=== PATIENT | female | born 1950 | race Caucasian/White ===

== ENCOUNTER → 2018-07-17 | Day surgery (SDC) | payer OTHER ==
[2018-07-16 13:32] LABS: BASOPHILS % 0.5 % (0.0-1.0); EOSINOPHILS # (AUTO) 0.1 (0.0-0.4); EOSINOPHILS % 1.1 % (0.0-6.0); HEMATOCRIT 37.8 % (34.2-44.1); LYMPHOCYTES # (AUTO) 1.5 (1.0-3.2); LYMPHOCYTES % 20.3 % (18.0-39.1); MEAN CORPUSCULAR HEMOGLOBIN 30.4 pg (28-32); MEAN CORPUSCULAR HGB CONC 34.4 g/dL (31-35); MEAN CORPUSCULAR VOLUME 88.3 fL (81-99); MONOCYTES # (AUTO) 0.5 (0.2-0.8); MONOCYTES % 6.7 % (4.4-11.3); NEUTROPHILS # (AUTO) 5.2 (2.1-6.9); NEUTROPHILS % 71.1 % (38.7-80.0); PLATELET COUNT 218 x10e3/uL (140-360); RED BLOOD COUNT 4.28 x10e6/uL (3.6-5.1); RED CELL DISTRIBUTION WIDTH 12.7 % (11.7-14.4)
--- NOTE | 2018-07-16 14:47 | Diagnostic Imaging Report ---
EXAMINATION: PA and lateral views of the chest. COMPARISON: None CLINICAL HISTORY: Preoperative study for foot surgery DISCUSSION: Lines/tubes: None. Lungs: The lungs are well inflated and clear. There is no evidence of pneumonia or pulmonary edema. Pleura: There is no pleural effusion or pneumothorax. Heart and mediastinum: The cardiomediastinal silhouette is normal. Bones and soft tissues: No acute bony abnormalities. 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 IMPRESSION: No acute cardiopulmonary abnormalities. Signed by: Dr. Tristian Naqvi M.D. on 07/16/2018 2:44 PM
[~2018-07-17] MED LIST: ACETAMINOPHEN 1000 MG/100 ML IV ONE; BUPIVACAINE 0.25% 30ML SDV INJ ONE; CEFAZOLIN SOD 1 GM/NS 50ML 50 ML IV ONE; COQ-10100 MG PO; DEPO-MEDRO80 MG/1 ML INJ; DEXAMETHASONE SOD PHOS INJ 4 MG/ML VIAL ONE; EPHEDRINE SULFATE INJ 50 MG/10 ML SYR ONE; FENTANYL CITRATE/PF 100MCG/2 ML INJ ONE; FLAX SEED OIL1000 MG PO; FOLIC ACID0.8 MG PO; LIDOCAINE HCL 2% LOCAL INJ 5 ML SDV VIAL INJ ONE; MELATONIN TR 51 EACH PO; MIDAZOLAM HCL 2 MG/2 ML VIAL ONE; ONDANSETRON HCL INJ 2MG/ML 2ML 2 MG/ML VIAL ONE; PHENYLEPHRINE HCL 1% 10 MG/ML VIAL ONE; PROPOFOL IV EMULSION 10 MG/ML 20 ML VIAL ONE; SEVOFLURANE INHAL SOLN 250 ML PEN BTL ONE; TORADOL INJ; TUMERIC PO; TYLENOL EXTRA PO; VITAMIN B-1001 EACH PO; VITAMIN B-121000 MC2 PO; VITAMIN B-6100 MG PO; VITAMIN C1000 M2 PO; VITAMIN D1000 UNI1 PO
--- OUTSIDE RECORDS SUMMARY | 2018-07-17 05:16 | XMS REPORT ---
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 Allergies, Adverse Reactions, Alerts This patient has no known allergies or adverse reactions. Medications This patient has no known medications. Results Test Description Test Time Test Comments Text Results Atomic Results Result Comments CHEST 2 VIEWS 2018-07-16 14:43:00 [place] [address] Patient Name: DIMITRIOS HEATH MR #: [id number] : 1950 Age/Sex: 67/F Req #: [id number] Adm Physician: Ordered by: MEENAKSHI NAJERA DPM Report #: [id number] Location: OR Room/Bed: Procedure: [id number] DX/CHEST 2 VIEWS Exam Date: 07/16/18 Exam Time: 1320 REPORT STATUS: Signed EXAMINATION: PA and lateral views of the chest. COMPARISON: None CLINICAL HISTORY: Preoperative study for foot surgery DISCUSSION: Lines/tubes: None. Lungs: The lungs are well inflated and clear. There is no evidence of pneumonia or pulmonary edema. Pleura: There is no pleural effusion or pneumothorax. Heart and mediastinum: The cardiomediastinal silhouette is normal. Bones and soft tissues: No acute bony abnormalities. 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 IMPRESSION: No acute cardiopulmonary abnormalities. Signed by: Dr. Cecilio Landry M.D. on 07/16/2018 2:44 PM Dictated By: CECILIO LANDRY MD [id number] Transcribed By: SHAQ on 07/16/18 1444 COPY TO: MEENAKSHI NAJERA DPM
--- NOTE | 2018-07-17 08:08 | Operative Report ---
DATE OF PROCEDURE: July 17, 2018 PREOPERATIVE DIAGNOSES 1. Left hallux rigidus. 2. Left Tailor's bunion. POSTOPERATIVE DIAGNOSES 1. Left hallux rigidus. 2. Left Tailor's bunion. PLANNED PROCEDURES 1. Left Marquis bunionectomy with implant. 1. Left Tailor's bunionectomy. ANESTHESIA: General with a postoperative block consisting of 20 mL of 0.25% Marcaine plain. HEMOSTASIS: Pneumatic thigh tourniquet set at 350 mmHg for a total time of approximately 40 minutes. ESTIMATED BLOOD LOSS: Less than 10 mL. PATHOLOGY: None. MATERIALS: One size 2 in to bone toe reference implant 2-0 Vicryl, 3-0 Vicryl, and 4-0 Prolene. PROCEDURE IN DETAIL: Patient was seen in the preoperative waiting room where the correct procedure and site was identified. The patient was brought into the operating room and placed on the operating table in the supine position. General anesthesia was initiated at this time. A well-padded pneumatic tourniquet was placed about the patient's left thigh. The left foot, ankle and leg was then scrubbed, prepped and draped in the usual aseptic manner. The left foot, ankle, and leg was examined with an Esmarch bandage. The pneumatic thigh tourniquet was inflated to 350 mmHg for a total time of approximately 40 minutes. Attention was directed to the medial aspect of the left 1st metatarsophalangeal joint where a 5 cm curvilinear incision made directly over the joint. The incision was carried through the subcutaneous tissues them from deeper underlying structures. All vital neurovascular structures were identified and retracted medially and laterally, and all bleeders were cauterized or ligated as deemed necessary. At this time, through the same incision a full lateral release was performed consisting of the deep transverse metatarsal ligament, lateral collateral ligament, as well as the fibular sesamoid ligament. Next, attention was directed back to the 1st metatarsophalangeal joint where a linear capsulotomy was performed to allow for good visualization of the 1st metatarsophalangeal joint. It was noted to be more than 60% denuded of articular cartilage of the 1st metatarsal head, and more than 40% of the base of the proximal phalanx. The decision was made to proceed with a Marquis bunionectomy with implant. Utilizing a sagittal saw, the base of the proximal phalanx, as well as the distal articular cartilage of the 1st metatarsal head were resected and passed off to the back table. Per electrician substation protocol with in to bone implant, the cut was made parallel to the ground. The bone was excised and passed off to the back table. The wound was then flushed with copious amounts of sterile saline. Per electrician substation protocol, a guidewire was placed, confirmed via intraoperative fluoroscopy. The reamers were used to create the guide holes for the implant in the head of the 1st metatarsal, as well as the base of the proximal phalanx. Next, the grommets were placed and tamped in by hand. The implant was placed with the proximal stump first followed by the distal stem of the hallux. It was then put through a range of motion and found to be functioning in good anatomic alignment with more than 65 degrees of range of motion. This was again confirmed via intraoperative fluoroscopy. The incision site was then flushed with copious amounts of sterile saline. Capsular and deep tissue were reapproximated with 2-0 Vicryl, subcutaneous tissue with 3-0 Vicryl and skin was closed using a running interlocking stitch with 4-0 Prolene. Attention was directed to the lateral aspect of the patient's left 5th metatarsophalangeal joint where a 4 cm curvilinear incision was made lateral to the extensor digitorum longus tendon. The incision was carried through subcutaneous tissues them from deeper underlying structures. There was noted to be a large inflamed bursa to the lateral aspect of the 5th metatarsal joint, which was excised at this time. Next, inverted-L capsulotomy was performed at the level of the 5th metatarsophalangeal joint, and the tissue was reflected to allow for good visualization of the 5th metatarsal head. Utilizing a sagittal saw, the lateral eminence was resected and passed off to the back table. Utilizing a rotary bur, the metatarsal head was smoothed to anatomic alignment, and a rasp was used to smooth out the plantar aspect of the foot. The wound was then flushed with copious amounts of sterile saline. Capsule and deep tissue were reapproximated with 2-0 Vicryl, subcutaneous with 3-0 Vicryl and the skin was closed using a running interlocking stitch of 4-0 Prolene. All incision sites were dressed with Adaptic, 4 x 4's, Kerlix, David wrap, and a postop shoe. The patient tolerated the procedure and anesthesia well. Patient was transferred to the postoperative recovery unit with vital signs stable and vascular status intact. Patient was monitored there for a short period time before being sent home with the following written and oral instructions: 1. Keep the dressing clean, dry and intact. 2. The patient is to remain partial weightbearing in a postop shoe and to avoid excessive ambulation until being seen in the office. 3. The patient was given the office number and instructed to contact us if any problems should arise. Job#: [id number] LAURYN
[2018-07-17 08:40] VITALS: BP 123/72
== END | disposition home or self-care (01) ==
LOC: OR 05:05
PROVIDERS: ATTEND Podiatrist Foot & Ankle Surgery
DX: M20.22 Hallux rigidus, left foot (principal); M21.622 Bunionette of left foot; Z01.810 Encounter for preprocedural cardiovascular examination; Z01.812 Encounter for preprocedural laboratory examination; Z01.811 Encounter for preprocedural respiratory examination; Z88.8 Allergy status to other drugs, medicaments and biological substances; Z91.040 Latex allergy status
CPT/HCPCS: 28291; 36415; 71046; 85025; 93005; J0131; J0690; J1100; J2001; J2250; J2370; J2405; J2704; L8642

== ENCOUNTER → 2023-10-09 | Day surgery (SDC) | payer MEDICARE ==
[2023-10-02 08:49] LABS: BASOPHILS # (AUTO) 0.1 (0.0-0.1); BASOPHILS % 0.9 % (0.0-1.0); EOSINOPHILS # (AUTO) 0.1 (0.0-0.4); EOSINOPHILS % 2.1 % (0.0-6.0); HEMATOCRIT 36.9 % (34.2-44.1); HEMOGLOBIN 13.3 g/dL (12.0-16.0); LYMPHOCYTES # (AUTO) 1.3 (1.0-3.2); LYMPHOCYTES % 21.8 % (18.0-39.1); MEAN CORPUSCULAR HEMOGLOBIN 31.2 pg (28-32); MEAN CORPUSCULAR VOLUME 86.6 fL (81-99); MONOCYTES # (AUTO) 0.6 (0.2-0.8); MONOCYTES % 10.4 % (4.4-11.3); NEUTROPHILS # (AUTO) 3.7 (2.1-6.9); NEUTROPHILS % 64.6 % (38.7-80.0); PLATELET COUNT 189 x10e3/uL (140-360); RED BLOOD COUNT 4.26 x10e6/uL (3.6-5.1); RED CELL DISTRIBUTION WIDTH 12.3 % (11.7-14.4); WHITE BLOOD COUNT 5.78 x10e3/uL (4.8-10.8)
[~2023-10-09] MED LIST changes: -ACETAMINOPHEN 1000 MG/100 ML IV ONE; +BIOTIN5000 MCG PO; -BUPIVACAINE 0.25% 30ML SDV INJ ONE; -CEFAZOLIN SOD 1 GM/NS 50ML 50 ML IV ONE; -DEXAMETHASONE SOD PHOS INJ 4 MG/ML VIAL ONE; -EPHEDRINE SULFATE INJ 50 MG/10 ML SYR ONE; -FENTANYL CITRATE/PF 100MCG/2 ML INJ ONE; +GLUCAGON FOR INJ 1 MG VIAL ONE; +HYOSCYAMINE SULFATE 0.5 MG/ML INJ ONE; -MIDAZOLAM HCL 2 MG/2 ML VIAL ONE; -ONDANSETRON HCL INJ 2MG/ML 2ML 2 MG/ML VIAL ONE; +ONDANSETRON ODT4 MG SL; -PHENYLEPHRINE HCL 1% 10 MG/ML VIAL ONE; +PROBIOTICS1 EACH PO; -SEVOFLURANE INHAL SOLN 250 ML PEN BTL ONE; +ZINC PO
[2023-10-09] MEDS: LACTATED RINGER'S 1,000 ML ONE (07:48)
[2023-10-09 10:05] VITALS: BP 133/70; PULSE 84; RESP 18; O2SAT 97
== END | disposition home or self-care (01) ==
LOC: OR 06:59
PROVIDERS: ATTEND Internal Medicine Gastroenterology
DX: Z12.11 Encounter for screening for malignant neoplasm of colon (principal); D12.3 Benign neoplasm of transverse colon; K63.3 Ulcer of intestine; K57.30 Diverticulosis of large intestine without perforation or abscess without bleeding; K59.09 Other constipation; K64.8 Other hemorrhoids; Z71.3 Dietary counseling and surveillance; R03.0 Elevated blood-pressure reading, without diagnosis of hypertension; Z71.89 Other specified counseling; Z88.1 Allergy status to other antibiotic agents; Z91.040 Latex allergy status; Z01.810 Encounter for preprocedural cardiovascular examination; Z01.812 Encounter for preprocedural laboratory examination
CPT/HCPCS: 36415; 45380; 45385; 83630; 83993; 85025; 87045; 87177; 87324; 87328; 87449; 88305; 93005; J1610; J1980; J2001; J2704; J7121; 45378

== ENCOUNTER 2024-11-25 10:22 | Outpatient (RCR) | payer MEDICARE ==
[~2024-11-25 10:22] MED LIST changes: -GLUCAGON FOR INJ 1 MG VIAL ONE; -HYOSCYAMINE SULFATE 0.5 MG/ML INJ ONE; -LIDOCAINE HCL 2% LOCAL INJ 5 ML SDV VIAL INJ ONE; -PROPOFOL IV EMULSION 10 MG/ML 20 ML VIAL ONE
== END 2024-11-29 ==
LOC: PT 10:22
PROVIDERS: ATTEND Specialist
DX: S82.092A Other fracture of left patella, initial encounter for closed fracture (principal)

== ENCOUNTER 2024-12-24 09:00 | Outpatient (RCR) | payer MEDICARE | END 2024-12-30 | LOC: PT 09:00 | PROVIDERS: ATTEND Specialist | DX: S82.092A Other fracture of left patella, initial encounter for closed fracture (principal) ==